=== PATIENT | female | born 1965 | race Caucasian/White ===

== ENCOUNTER → 2016-10-12 | Outpatient (CLI) | payer OTHER ==
[~2016-10-12] MED LIST: AMBIEN 10MG10 MG PO; ASPIRIN E.C. 8181 MG PO; CALCIUM 600600 M2 PO; CONTRAVE PO; DESYREL 100MG100 MG PO; EFFEXOR 75M75 MG/TAB PO; EFFEXOR-XR150 MG PO; LASIX 20MG TABL20 MG PO; NORCO 325 MG-51 TAB PO; PERCOCET 325 MG1 TA2 PO; VITAMIN D 400400 IU; ZESTRIL 10MG10 MG PO
== END ==
LOC: MC.RAD 10:06
DX: Z12.31 Encounter for screening mammogram for malignant neoplasm of breast (principal)

== ENCOUNTER 2016-11-10 10:42 | Emergency (ER) | payer OTHER ==
[~2016-11-10] VITALS: Ht 167.6 cm; Wt 54.5 kg
[~2016-11-10 10:42] MED LIST changes: -EFFEXOR 75M75 MG/TAB PO; -NORCO 325 MG-51 TAB PO
[2016-11-10 10:44] VITALS: TEMP 97.9
[2016-11-10 11:47] LABS: BASO % 0.4 % (0.0-2.0); EOS # 0.1 (0.0-0.7); EOS % 0.4 % (0-4.0); GRAN # 7.8 (1.4-6.5); GRAN % 68.8 % (42.2-75.2); HEMATOCRIT 43.3 % (37.0-47.0); HEMOGLOBIN 14.5 g/dl (12.5-16.0); LYMPH # 2.7 (1.2-3.4); LYMPH % 23.6 % (20.0-51.0); MEAN CELL VOLUME 94 fl (80.0-100.0); MEAN CORPUSCULAR HEMOGLOBIN 32 pg (27.0-31.0); MEAN CORPUSCULAR HGB CONC 34 g/dl (33.0-37.0); MEAN PLATELET VOLUME 10.5 fl (7.4-10.4); MONO # 0.7 (0.1-0.6); MONO % 6.4 % (1.7-9.3); PLATELET COUNT 303 K/mm3 (130-400); RED BLOOD COUNT 4.61 M/mm3 (4.10-5.30); REDCELL DISTRIBUTION WIDTH-CV 13.2 % (11.5-14.5); WHITE BLOOD COUNT 11.3 K/mm3 (4.8-10.8)
[2016-11-10 11:52] LABS: PH 6 (5-8); SQUAMOUS EPITHELIAL None Seen /hpf; URINE APPEARANCE Clear; URINE BACTERIA None Seen /hpf; URINE BILIRUBIN Negative (NEGATIVE); URINE BLOOD 1+ (NEGATIVE); URINE COLOR Yellow; URINE GLUCOSE Negative (NEGATIVE); URINE KETONE Trace (NEGATIVE); URINE RBC 20-50 /hpf; URINE UROBILINOGEN Negative (NEGATIVE)
[2016-11-10 11:57] LABS: ADJUSTED CALCIUM 8.9 mg/dL (8.4-10.2); ALBUMIN 4.3 gm/dL (3.5-5.0); BILIRUBIN,TOTAL 0.8 mg/dL (0.0-1.0); CALCIUM 9.1 mg/dL (8.4-10.2); CREATININE, serum 0.66 mg/dL (0.52-1.25); POTASSIUM 3.7 mmol/L (3.4-5.0)
[2016-11-10] MEDS ORDERED: NORCO 325 MG-51 TAB PO (12:54)
[2016-11-10 13:15] VITALS: BP 149/95; PULSE 65
[2016-11-11] MEDS ORDERED: EFFEXOR 75M75 MG/TAB PO (15:42)
== END 2016-11-10 13:15 | disposition home or self-care (01) ==
LOC: COL.ER 10:42
PROVIDERS: Family Medicine
DX: N13.2 Hydronephrosis with renal and ureteral calculous obstruction (principal); Z98.84 Bariatric surgery status; R93.3 Abnormal findings on diagnostic imaging of other parts of digestive tract
CPT/HCPCS: J1885; J2405; J7030

== ENCOUNTER 2016-11-11 14:45 | Day surgery (SDC) | payer OTHER ==
[~2016-11-11] VITALS: Ht 167.6 cm; Wt 55.1 kg
[~2016-11-11 14:45] MED LIST changes: +NORCO 325 MG-51 TAB PO
[2016-11-11 15:36] VITALS: BP 119/69; PULSE 56; TEMP 98
[2016-11-11] MEDS ORDERED: EFFEXOR 75M75 MG/TAB PO (15:42)
[2016-11-11 17:52] VITALS: BP 122/72; PULSE 59; TEMP 98
== END 2016-11-11 19:40 | disposition home or self-care (01) ==
LOC: SDCO 14:45 → SURG 17:30 → SDCO 19:40
DX: N20.1 Calculus of ureter (principal); Z87.442 Personal history of urinary calculi; Z98.84 Bariatric surgery status; Z79.899 Other long term (current) drug therapy; F17.200 Nicotine dependence, unspecified, uncomplicated
CPT/HCPCS: OP; C1769; J0690; J1100; J1885; J2250; J2405; J2704; J3010; J7120; Q9967

== ENCOUNTER → 2017-11-02 | Outpatient (CLI) | payer BC ==
[~2017-11-02] MED LIST changes: +EFFEXOR 75M75 MG/TAB PO
== END ==
LOC: MC.RAD 07:28
DX: Z12.31 Encounter for screening mammogram for malignant neoplasm of breast (principal)

== ENCOUNTER → 2019-01-10 | Outpatient (CLI) | payer BC | LOC: MC.RAD 13:37 | DX: Z12.31 Encounter for screening mammogram for malignant neoplasm of breast (principal) ==

== ENCOUNTER 2019-03-01 11:35 | Emergency (ER) | payer BC ==
[~2019-03-01] VITALS: Ht 167.6 cm; Wt 54.5 kg
[2019-03-01 11:41] VITALS: TEMP 98.6
[2019-03-01] MEDS ORDERED: MULTI VITAMINS1 TAB PO (11:46)
[2019-03-01] MEDS ORDERED: BIOTIN10000 MC1 PO (11:47)
[2019-03-01 12:09] LABS: ALANINE AMINOTRANSFERASE 23 U/L (9-52); ALBUMIN 3.6 gm/dL (3.5-5.0); ALKALINE PHOSPHATASE 145 U/L (50-136); ANION GAP 7 mmol/L (7-16); AST,SGOT 33 U/L (15-37); BILIRUBIN,TOTAL 0.6 mg/dL (0.0-1.0); BLOOD UREA NITROGEN 9 mg/dL (7-17); CALCIUM 8.4 mg/dL (8.4-10.2); CARBON DIOXIDE 29 mmol/L (22-30); CHLORIDE 101 mmol/L (98-107); CREATININE, serum 0.51 (0.52-1.25); GLUCOSE 83 mg/dL (74-106); SODIUM 138 mmol/L (137-145); TOTAL PROTEIN 6.4 gm/dL (6.4-8.2)
[2019-03-01 12:18] LABS: ACETAMINOPHEN < 10 ug/mL (10-30)
[2019-03-01 12:19] LABS: ALCOHOL(ethanol),MEDICAL < 10 mg/dL; SALICYLATE < 1.0 mg/dL
[2019-03-01 12:21] LABS: BASO % 0.4 % (0.0-2.0); EOS # 0.1 (0.0-0.7); EOS % 0.7 % (0-4.0); GRAN % 55.7 % (42.2-75.2); HEMOGLOBIN 13.5 g/dl (12.5-16.0); LYMPH # 3.4 (1.2-3.4); LYMPH % 37.7 % (20.0-51.0); MEAN CELL VOLUME 100 fl (80.0-100.0); MEAN CORPUSCULAR HEMOGLOBIN 33 pg (27.0-31.0); MEAN CORPUSCULAR HGB CONC 33 g/dl (33.0-37.0); MONO # 0.5 (0.1-0.6); MONO % 5.3 % (1.7-9.3); PLATELET COUNT 219 K/mm3 (130-400); RED BLOOD COUNT 4.11 M/mm3 (4.10-5.30); REDCELL DISTRIBUTION WIDTH-CV 12.7 % (11.5-14.5)
[2019-03-01 12:25] LABS: PROLACTIN 2.3 ng/mL (3.0-18.6)
[2019-03-01 13:15] LABS: COLLECTION METHOD CLEAN CATCH
[2019-03-01 13:21] LABS: PH 6 (5-8); SQUAMOUS EPITHELIAL None Seen /hpf; URINE APPEARANCE Clear; URINE BACTERIA None Seen /hpf; URINE BILIRUBIN Negative (NEGATIVE); URINE BLOOD Negative (NEGATIVE); URINE COLOR Straw; URINE GLUCOSE Negative (NEGATIVE); URINE KETONE Negative (NEGATIVE); URINE LEUKOCYTE ESTERASE Negative (NEGATIVE); URINE NITRATE Negative (NEGATIVE); URINE PROTEIN(semi-quant) Negative (NEGATIVE); URINE RBC None Seen /hpf; URINE UROBILINOGEN Negative (NEGATIVE)
[2019-03-01 13:33] LABS: TRICYCLIC ANTIDEPRESS URINE NEGATIVE
[2019-03-01 14:16] VITALS: BP 135/80; PULSE 53
== END 2019-03-01 14:23 | disposition home or self-care (01) ==
LOC: COL.ER 11:35
PROVIDERS: Emergency Medicine
DX: R41.3 Other amnesia (principal); F90.9 Attention-deficit hyperactivity disorder, unspecified type; F12.90 Cannabis use, unspecified, uncomplicated; Z90.710 Acquired absence of both cervix and uterus; Z87.442 Personal history of urinary calculi
CPT/HCPCS: J7030

== ENCOUNTER 2019-05-29 08:09 | Outpatient (RCR) | payer OTHER ==
[~2019-05-29 08:09] MED LIST changes: +BIOTIN10000 MC1 PO; +MULTI VITAMINS1 TAB PO
== END 2019-06-05 09:15 | disposition home or self-care (01) ==
LOC: WSOH 08:09
DX: F41.9 Anxiety disorder, unspecified (principal); M79.644 Pain in right finger(s); Y99.0 Civilian activity done for income or pay; Z90.49 Acquired absence of other specified parts of digestive tract; Z98.84 Bariatric surgery status; Z90.89 Acquired absence of other organs

== ENCOUNTER → 2020-04-10 | Outpatient (CLI) | payer BC ==
[~2020-04-10] VITALS: Ht 167.6 cm; Wt 52.2 kg
[~2020-04-10] MED LIST changes: +ESTROVEN MAX400 MCG PO; +PROBIOTIC FORMU1 CAP PO
[2020-04-10 13:38] VITALS: BP 142/84; PULSE 66
== END ==
LOC: LIGHT 10:29
DX: E66.8 Other obesity (principal); Z68.1 Body mass index [BMI] 19.9 or less, adult; Z98.84 Bariatric surgery status
CPT/HCPCS: G0463

== ENCOUNTER 2021-02-24 13:16 | Observation (INO) | payer BC ==
[~2021-02-24] VITALS: Ht 167.6 cm; Wt 62.9 kg
[2021-02-24 13:49] LABS: BASO % 0.3 % (0.0-2.0); EOS # 0.2 (0.0-0.7); EOS % 1.7 % (0-4.0); GRAN % 57.6 % (42.2-75.2); HEMATOCRIT 40.7 % (37.0-47.0); HEMOGLOBIN 12.9 g/dl (12.5-16.0); LYMPH # 2.9 (1.2-3.4); LYMPH % 33.1 % (20.0-51.0); MEAN CELL VOLUME 100 fl (80.0-100.0); MEAN CORPUSCULAR HEMOGLOBIN 32 pg (27.0-31.0); MEAN CORPUSCULAR HGB CONC 32 g/dl (33.0-37.0); MEAN PLATELET VOLUME 9.5 fl (7.4-10.4); MONO # 0.6 (0.1-0.6); MONO % 7.1 % (1.7-9.3); PLATELET COUNT 211 K/mm3 (130-400); RED BLOOD COUNT 4.07 M/mm3 (4.10-5.30); REDCELL DISTRIBUTION WIDTH-CV 12.8 % (11.5-14.5)
[2021-02-24 13:58] LABS: ALANINE AMINOTRANSFERASE 16 U/L (4-34); ALBUMIN 3.7 gm/dL (3.5-5.0); ALKALINE PHOSPHATASE 167 U/L (50-136); ANION GAP 7 mmol/L (7-16); AST,SGOT 28 U/L (15-37); BILIRUBIN,TOTAL 0.3 mg/dL (0.0-1.0); BLOOD UREA NITROGEN 5 mg/dL (7-17); CALCIUM 8.3 mg/dL (8.4-10.2); CARBON DIOXIDE 26 mmol/L (22-30); CHLORIDE 104 mmol/L (98-107); CREATININE, serum 0.55 (0.52-1.25); GLUCOSE 119 mg/dL (74-106); POTASSIUM 3.5 mmol/L (3.4-5.0); SODIUM 138 mmol/L (137-145); TOTAL PROTEIN 6.7 gm/dL (6.4-8.2)
[2021-02-24 14:20] LABS: TROPONIN-I < 0.012 ng/mL (0.000-0.035)
--- NOTE | 2021-02-24 19:32 | NUR ---
Awake, alert, oriented x 4, ambulatory, answers questions readily, assessment completed at this time, oriented to visitor policy and room, answered all questions.
[2021-02-24 20:30] VITALS: BP 163/87; PULSE 70; TEMP 98
[2021-02-25 04:18] VITALS: BP 178/88; PULSE 71; TEMP 97.5
[2021-02-25 07:08] LABS: BASO % 0.6 % (0.0-2.0); EOS # 0.1 (0.0-0.7); EOS % 1.8 % (0-4.0); GRAN # 3.7 (1.4-6.5); HEMATOCRIT 40.5 % (37.0-47.0); HEMOGLOBIN 12.9 g/dl (12.5-16.0); LYMPH # 2.3 (1.2-3.4); LYMPH % 33.6 % (20.0-51.0); MEAN CELL VOLUME 100 fl (80.0-100.0); MEAN CORPUSCULAR HEMOGLOBIN 32 pg (27.0-31.0); MEAN CORPUSCULAR HGB CONC 32 g/dl (33.0-37.0); MEAN PLATELET VOLUME 9.9 fl (7.4-10.4); MONO # 0.6 (0.1-0.6); MONO % 8.6 % (1.7-9.3); PLATELET COUNT 205 K/mm3 (130-400); RED BLOOD COUNT 4.06 M/mm3 (4.10-5.30); REDCELL DISTRIBUTION WIDTH-CV 12.8 % (11.5-14.5)
[2021-02-25 07:13] LABS: ANION GAP 4 mmol/L (7-16); BLOOD UREA NITROGEN 8 mg/dL (7-17); CALCIUM 8.3 mg/dL (8.4-10.2); CARBON DIOXIDE 31 mmol/L (22-30); CHLORIDE 103 mmol/L (98-107); CHOLESTEROL 139 mg/dL (120-200); CHOLESTEROL RISK RATIO 2.7; CREATININE, serum 0.52 (0.52-1.25); GLUCOSE 79 mg/dL (74-106); HDL CHOLESTEROL 51 mg/dL; LDL CHOLESTEROL 67 mg/dL; POTASSIUM 3.7 mmol/L (3.4-5.0); SODIUM 138 mmol/L (137-145); TRIGLYCERIDE 104 mg/dL
[2021-02-25 07:50] LABS: TROPONIN-I < 0.012 ng/mL (0.000-0.035)
[2021-02-25 08:17] VITALS: BP 133/69; PULSE 68; TEMP 98.4
--- NOTE | 2021-02-25 09:50 | NUR ---
SW's met with the patient to discuss discharge plan. The patient lives in [place] with her best friend/roommate, Larissa Pratt (ph#[phone]). She reports independence with ADLs and does not have any DME. The patient's PCP is Dr. Kim Johnson and she receives her medications from [facility]. She reports no difficulties obtaining her meds. The patient does not have a DPOA-HC in EMR, but she states that she does have one completed and that the form is at home. She states that she designated her friend, Larissa Pratt. She states that she is and has two children: Lillian (ph#[phone]) and Demetrio. The patient plans to return home with her roommate upon discharge. No additional needs at this time. *Discharge plan: home with bestfriend/roommate*
[2021-02-25 10:06] LABS: IRON,SERUM 43 ug/dL (35-150)
[2021-02-25 10:15] LABS: TOTAL IRON BINDING CAPACITY 240 ug/dL (265-497)
[2021-02-25 11:31] VITALS: BP 145/76; PULSE 65; TEMP 98.2
[2021-02-25] MEDS ORDERED: PROTONIX 40MG T40 MG PO ×2 (11:57)
--- NOTE | 2021-02-25 12:33 | NUR ---
Initial visit; Patient thanked Toll Collector Supervisor for looking in on her and offering God's blessings and keeping her in Toll Collector Supervisor's prayers.
--- NOTE | 2021-02-25 13:35 | NUR ---
0700 PT RECEIVED RESTING IN BED. NO S/S OF DISTRESS NOTICED. PT DENIES HAVING CHEST PAIN. COMFORT MEASURES IN PLACE. CALL-LIGHT IN REACH. WILL CONTINUE TO MONITOR. 0820 PT EATING HER MEAL. 0840 PROVIDER AT THE BEDSIDE. 0900 MEDICATIONS ADMINISTERED ORDERED. 1200 PT EATING HER LUNCH. PT DENIES CHEST PAIN. WILL CONTINUE TO MONITOR. 1335 DISCHARGE INSTRUCTIONS REVIEWED WITH PT. ALL QUESTIONS ANSWERED. IV ACCESS AND TELE MONITOR REMOVED.
== END 2021-02-25 13:48 | disposition home or self-care (01) ==
LOC: COL.ER 13:16 → MEDICAL 16:50
PROVIDERS: Emergency Medicine; Physician Assistant; ADMIT Internal Medicine
DX: R07.89 Other chest pain (principal); R51.9 Headache, unspecified; I10 Essential (primary) hypertension; E78.5 Hyperlipidemia, unspecified; E11.9 Type 2 diabetes mellitus without complications; F17.210 Nicotine dependence, cigarettes, uncomplicated; Z90.89 Acquired absence of other organs; Z90.49 Acquired absence of other specified parts of digestive tract; Z79.899 Other long term (current) drug therapy; Z79.82 Long term (current) use of aspirin
CPT/HCPCS: G0378; J1650

== ENCOUNTER 2022-11-11 16:56 | Emergency (ER) | payer BC ==
[~2022-11-11] VITALS: Ht 167.6 cm; Wt 62.1 kg
[~2022-11-11 16:56] MED LIST changes: +PROTONIX 40MG T40 MG PO
[2022-11-11 16:57] VITALS: TEMP 97.6
[2022-11-11] MEDS ORDERED: PERCOCET 325 MG1 TA2 PO (19:02)
[2022-11-11 19:30] VITALS: BP 165/81; PULSE 62
== END 2022-11-11 19:30 | disposition home or self-care (01) ==
LOC: COL.ER 16:56
DX: S52.502A Unspecified fracture of the lower end of left radius, initial encounter for closed fracture (principal); S52.602A Unspecified fracture of lower end of left ulna, initial encounter for closed fracture; W54.0XXA Bitten by dog, initial encounter; Y93.01 Activity, walking, marching and hiking
CPT/HCPCS: J2270; J2405; J2704; J7030

== ENCOUNTER 2023-08-18 10:40 | Emergency (ER) | payer BC ==
[~2023-08-18] VITALS: Ht 165.1 cm; Wt 44.5 kg
[2023-08-18 10:41] VITALS: TEMP 98.5
[2023-08-18] MEDS ORDERED: PERCOCET 325 MG1 TA2 PO (12:20)
[2023-08-18 12:52] VITALS: BP 133/77; PULSE 63
== END 2023-08-18 12:54 | disposition home or self-care (01) ==
LOC: COL.ER 10:40
DX: S06.0X0A Concussion without loss of consciousness, initial encounter (principal); S00.83XA Contusion of other part of head, initial encounter; S20.213A Contusion of bilateral front wall of thorax, initial encounter; S80.212A Abrasion, left knee, initial encounter; M17.12 Unilateral primary osteoarthritis, left knee; F17.210 Nicotine dependence, cigarettes, uncomplicated; Z86.16 Personal history of COVID-19; W01.198A Fall on same level from slipping, tripping and stumbling with subsequent striking against other object, initial encounter; Y99.0 Civilian activity done for income or pay

== ENCOUNTER 2023-10-04 13:35 | Emergency (ER) | payer OTHER ==
[~2023-10-04] VITALS: Ht 165.1 cm; Wt 44.1 kg
[2023-10-04 13:39] VITALS: TEMP 97.6
[2023-10-04 14:31] VITALS: BP 148/93; PULSE 70
== END 2023-10-04 14:31 | disposition home or self-care (01) ==
LOC: COL.ER 13:35
DX: R20.2 Paresthesia of skin (principal)

== ENCOUNTER 2024-05-27 17:44 | Emergency (ER) | payer BC ==
[~2024-05-27] VITALS: Ht 165.1 cm; Wt 57.7 kg
[~2024-05-27 17:44] MED LIST changes: +BARIATRIC VITAMIN; +CALCIUM CITRAT200 M2; +COPPER GLUCONATE PO; +CYMBALTA 20MG20 MG PO; +LOVENOX 4040 MG/0.4 SQ; +NATURAL E400 IU PO; +PRILOTC PO; -PROBIOTIC FORMU1 CAP PO; +PROBIOTIC-MAJOR PO; +REQUIP0.25 MG PO; +ROBAXIN 50500 MG/TAB PO; +ROXICODONE 55 MG/TAB PO; +SENEXON-S 50-81 EACH PO; +TYLENOL 500MG500 MG PO; +VITAMIN D31000 IU PO
[2024-05-27 17:50] VITALS: TEMP 98.9
[2024-05-27] MEDS ORDERED: oxyCODONE 5 MG TAB PO ONE (18:45)
[2024-05-27] MEDS ORDERED: Home oxyCODONE/Acetaminophen 5/325 MG #4 TAB/PACK PO ONE (20:45)
[2024-05-27 21:03] VITALS: BP 154/92; PULSE 88
== END 2024-05-27 21:07 | disposition home or self-care (01) ==
LOC: COL.ER 17:44
DX: S20.219A Contusion of unspecified front wall of thorax, initial encounter (principal); M25.562 Pain in left knee; F17.210 Nicotine dependence, cigarettes, uncomplicated; W18.30XA Fall on same level, unspecified, initial encounter